=== PATIENT | male | born 1965 | race Caucasian/White ===

== ENCOUNTER 2017-10-01 10:37 | Emergency (ER) | payer OTHER ==
[~2017-10-01] VITALS: Ht 180.3 cm; Wt 136.1 kg
[2017-10-01 11:32] LABS: ABSOLUTE NEUTROPHILS 5.6 thou/uL (1.4-8.2); BASOPHILS 0.8 % (0.0-2.0); EOSINOPHILS 1.5 % (0.0-3.0); HEMATOCRIT 44.3 % (42.0-52.0); LYMPHOCYTES 30.8 % (24.0-44.0); MCH 30.1 pg (26.0-34.0); MCHC 33.8 g/dL (28.0-37.0); MCV 88.9 fL (80.0-100.0); MONOCYTES 7.3 % (1.0-8.0); PLATELET COUNT 278 thou/uL (150-400); POLYS 59.6 % (36.0-66.0); RBC 4.99 mil/uL (4.50-6.00); RDW 13.9 % (10.5-14.5); WBC 9.5 thou/uL (4.0-11.0)
[2017-10-01 11:42] LABS: CALCIUM 8.7 mg/dL (8.5-10.1); CREATININE 0.8 mg/dL (0.7-1.3)
[2017-10-01 11:43] LABS: URIC ACID* 7.5 mg/dL (2.6-7.2)
[2017-10-01] MEDS ORDERED: INDOMETHACIN 2525 MG PO (11:46)
[2017-10-01] MEDS ORDERED: HYDROCODONE-AP1 EAC6 PO (11:46)
[2017-10-01] MEDS ORDERED: LISINOPRIL20 MG PO (11:46)
== END 2017-10-01 12:22 | disposition home or self-care (01) ==
LOC: ER 10:37
PROVIDERS: Physician Assistant
DX: M10.9 Gout, unspecified (principal); I10 Essential (primary) hypertension; Z76.0 Encounter for issue of repeat prescription; Z98.890 Other specified postprocedural states

== ENCOUNTER 2017-10-03 10:41 | Emergency (ER) | payer OTHER ==
[~2017-10-03] VITALS: Ht 180.3 cm; Wt 136.1 kg
[~2017-10-03 10:41] MED LIST: HYDROCODONE-AP1 EAC6 PO; INDOMETHACIN 2525 MG PO; LISINOPRIL20 MG PO
[2017-10-03] MEDS ORDERED: NORCO 5-325 TA1 EACH PO (11:04)
[2017-10-03] MEDS ORDERED: COLCHICINE0.6 MG PO (11:04)
== END 2017-10-03 11:13 | disposition home or self-care (01) ==
LOC: ER 10:41
DX: M10.9 Gout, unspecified (principal); M79.671 Pain in right foot; M79.672 Pain in left foot; I10 Essential (primary) hypertension